=== PATIENT | male | born 1935 | race Caucasian/White ===

== ENCOUNTER 2021-07-01 03:53 | Inpatient (IN) | payer MEDICARE, OTHER ==
[~2021-07-01] VITALS: Ht 172.7 cm; Wt 62.1 kg
[2021-07-01 04:18] VITALS: BP 141/84
[2021-07-01] MEDS ORDERED: HYDR-3972 PO (08:17)
[2021-07-01] MEDS ORDERED: NA P133E RC (08:31)
[2021-07-01] MEDS ORDERED: FURO20TA4 PO (08:31)
[2021-07-01] MEDS ORDERED: MEMA10TA PO (08:31)
[2021-07-01] MEDS ORDERED: GINK120C PO (08:31)
[2021-07-01] MEDS ORDERED: MAGN400O6 PO (08:31)
[2021-07-01] MEDS ORDERED: CRAN425C6 PO (08:31)
[2021-07-01] MEDS ORDERED: DOCU-141 PO (08:31)
[2021-07-01] MEDS ORDERED: QUET25TA PO (08:31)
[2021-07-01] MEDS ORDERED: OMEG1CAP PO (08:31)
[2021-07-01] MEDS ORDERED: BISA-79 RC (08:31)
[2021-07-01] MEDS ORDERED: MAGNESIUM HYDROXIDE 30 ML LIQUID UDC PO PRN (11:00)
[2021-07-01] MEDS ORDERED: FLEET ENEMA 133 ML BOTTLE RC PRN (11:00)
[2021-07-01] MEDS ORDERED: HYDROCODONE/APAP 5-325MG TABLET PO PRN (11:00)
[2021-07-01] MEDS: MEMANTINE HCL 10 MG TABLET PO SCH ×2 (11:39→22:56)
[2021-07-01] MEDS: QUETIAPINE FUMARATE 25 MG TABLET PO SCH ×2 (11:40→20:53)
[2021-07-01] MEDS: FUROSEMIDE 20 MG TABLET PO SCH (11:40)
[2021-07-01 12:00] VITALS: BP 121/76
[2021-07-01 16:08] VITALS: BP 125/76
[2021-07-01] MEDS: OMEGA-3 FATTY ACIDS/FISH OIL CAPSULE PO SCH (17:31)
[2021-07-01 20:00] VITALS: BP 133/85
[2021-07-01] MEDS ORDERED: TEMAZEPAM 15 MG CAPSULE PO PRN (21:30)
[2021-07-01] MEDS ORDERED: ACETAMINOPHEN 325 MG TABLET PO PRN (21:30)
[2021-07-02 04:06] VITALS: BP 121/76
[2021-07-02] MEDS: PANTOPRAZOLE SODIUM 40 MG TABLET.DR PO SCH (06:57)
[2021-07-02 07:44] LABS: HEMATOCRIT 37.8 % (36.7-47.1); MEAN CORPUSCULAR HEMOGLOBIN 34.2 uug (23.8-33.4); PLATELET COUNT (AUTO) 195 K/uL (152-348)
[2021-07-02 08:31] LABS: BILIRUBIN,TOTAL 0.6 mg/dL (0.2-1.0); CREATININE 0.9 mg/dL (0.6-1.3); MAGNESIUM 2.1 mg/dL (1.8-2.4); PHOSPHOROUS 2.7 mg/dL (2.5-4.9); POTASSIUM 3.4 mmol/L (3.5-5.1)
[2021-07-02] MEDS: FUROSEMIDE 20 MG TABLET PO SCH (09:04)
[2021-07-02] MEDS: MEMANTINE HCL 10 MG TABLET PO SCH ×2 (09:04→20:40)
[2021-07-02] MEDS: DOCUSATE SODIUM 100 MG CAPSULE PO SCH (09:04)
[2021-07-02] MEDS: QUETIAPINE FUMARATE 25 MG TABLET PO SCH ×2 (09:04→16:49)
[2021-07-02] MEDS ORDERED: POTASSIUM CHLORIDE 20 MEQ TAB.PRT.SR PO ONE (09:15)
[2021-07-02] MEDS: OMEGA-3 FATTY ACIDS/FISH OIL CAPSULE PO SCH (16:49)
[2021-07-02 17:16] VITALS: BP 138/68
[2021-07-02 20:30] VITALS: BP 100/60
[2021-07-03 04:34] VITALS: BP 108/60
[2021-07-03] MEDS: PANTOPRAZOLE SODIUM 40 MG TABLET.DR PO SCH (06:21)
[2021-07-03 07:00] LABS: CREATININE 1.1 mg/dL (0.6-1.3); POTASSIUM 3.8 mmol/L (3.5-5.1)
[2021-07-03] MEDS: DOCUSATE SODIUM 100 MG CAPSULE PO SCH (08:57)
[2021-07-03] MEDS: QUETIAPINE FUMARATE 25 MG TABLET PO SCH ×2 (08:57→16:30)
[2021-07-03] MEDS: FUROSEMIDE 20 MG TABLET PO SCH (08:57)
[2021-07-03] MEDS: MEMANTINE HCL 10 MG TABLET PO SCH (08:57)
[2021-07-03] MEDS ORDERED: CYANOCOBALAMIN 1000 MCG/ML VIAL IM SCH (11:00)
[2021-07-03 12:00] VITALS: BP 100/67
[2021-07-03 16:00] VITALS: BP 89/46
[2021-07-03] MEDS: OMEGA-3 FATTY ACIDS/FISH OIL CAPSULE PO SCH (16:30)
== END 2021-07-03 19:18 | DRG 92 ==
LOC: MEDSURG3 03:53
PROVIDERS: ADMIT Internal Medicine; ATTEND Nurse Practitioner Acute Care
DX: G92.8 Other toxic encephalopathy (principal); D68.59 Other primary thrombophilia; E44.1 Mild protein-calorie malnutrition; I50.32 Chronic diastolic (congestive) heart failure; R62.7 Adult failure to thrive; E87.6 Hypokalemia; C61 Malignant neoplasm of prostate; D75.89 Other specified diseases of blood and blood-forming organs; E78.5 Hyperlipidemia, unspecified; F03.90 Unspecified dementia, unspecified severity, without behavioral disturbance, psychotic disturbance, mood disturbance, and anxiety; F32.A Depression, unspecified; I11.0 Hypertensive heart disease with heart failure; K21.9 Gastro-esophageal reflux disease without esophagitis; N40.0 Benign prostatic hyperplasia without lower urinary tract symptoms; Z87.891 Personal history of nicotine dependence; Z20.822 Contact with and (suspected) exposure to COVID-19
CPT/HCPCS: 36415; 70030-TC; 71045; 83550; 83735; 84100; 84153; 85025; 85610; 93005; 97161; G0378; J3420